=== PATIENT | male | born 1970 | race Caucasian/White ===

== ENCOUNTER 2016-09-23 11:12 | Inpatient (IN) | payer OTHER ==
[~2016-09-23] VITALS: Ht 170.2 cm; Wt 63.0 kg
[~2016-09-23 11:12] MED LIST: ACETAMINOPHEN-120 ML PO; AUGMENTIN875 MG PO; CELEBREX100 MG PO; MOTRIN600 MG PO; PERCOCET 5/31 TABLET PO
[2016-09-23 11:30] VITALS: BP 115/66
[2016-09-23 13:29] LABS: MCH 32.2 PG (29.0-34.0); MCHC 35.5 G/DL (30.0-36.0); MCV 90.7 FL (86-99); MEAN PLAT.VOLUME 9.8 uM^3 (9.0-12.4); PLATELET COUNT 269 K/uL (156-360); RBC DIS.WIDTH-CV 13.4 % (11.8-14.6); RBC DIS.WIDTH-SD 43.7 % (39-53); RED BLOOD COUNT 4.63 M/uL (4.00-5.50); WHITE BLOOD COUNT 15.4 K/uL (4.1-10.2)
[2016-09-23 13:45] LABS: INTER. NORMALIZED RATIO 1.1
[2016-09-23 13:53] LABS: ALKALINE PHOSPHATASE 53 IU/L (3-129); ANION GAP 13 MEQ/L (2-14); CHLORIDE 101 MEQ/L (99-109); GFR ESTIMATE (CALCULATED) > 59 mL/min/; GLUCOSE 100 mg/dL (70-99); POTASSIUM 4.4 MEQ/L (3.7-5.4); SAMPLE HEMOLYSIS CHECK 0; SAMPLE ICTERIC CHECK 0; SAMPLE LIPEMIA CHECK 0; SODIUM 136 MEQ/L (136-147); TOTAL BILIRUBIN 0.4 MG/DL (0.0-1.0); UREA NITROGEN (BUN) 26 mg/dL (9-23)
[2016-09-23 15:14] VITALS: BP 102/57
[2016-09-23] MEDS ORDERED: TYLENOL REGULA325 MG PO (15:20)
[2016-09-23] MEDS ORDERED: HEPARIN SO5000 UNITS SC (15:21)
[2016-09-23] MEDS ORDERED: NORMODYNE,TRAN300 MG PO (15:23)
[2016-09-23] MEDS ORDERED: KEPPRA750 MG PO (15:24)
[2016-09-23] MEDS ORDERED: NICODERM CQ1 EAC1 TD (15:26)
[2016-09-23] MEDS ORDERED: ZESTRIL40 MG PO (15:26)
[2016-09-23] MEDS ORDERED: OXYCODONE HCL10 MG PO (15:27)
[2016-09-23] MEDS ORDERED: SENOKOTXTRA17.2 MG PO (15:28)
[2016-09-23] MEDS ORDERED: HYTRIN10 MG PO (15:28)
[2016-09-23] MEDS ORDERED: DECADRON4 MG PO (15:29)
[2016-09-23 22:20] VITALS: BP 102/55
[2016-09-23 23:48] VITALS: BP 114/70
[2016-09-24 06:05] VITALS: BP 119/75
[2016-09-24 12:12] LABS: BASOPHIL COUNT 0.1 K/uL (0-0.1); EOSINOPHIL (%) 2.2 % (0-5); EOSINOPHIL COUNT 0.3 K/uL (0-0.3); HEMATOCRIT 43.4 % (38.0-50.0); IMMATURE GRANULOCYTE (%) 0.4 % (0.0-0.7); IMMATURE GRANULOCYTE COUNT 0.1 K/uL; LYMPHOCYTE COUNT 3.4 K/uL (1.0-2.8); MCH 31.8 PG (29.0-34.0); MCV 90.8 FL (86-99); MEAN PLAT.VOLUME 9.7 uM^3 (9.0-12.4); MONOCYTE (%) 8.9 % (3-12); MONOCYTE COUNT 1.2 K/uL (0-0.8); NEUTROPHIL COUNT 8.5 K/uL (1.8-6.4); PLATELET COUNT 285 K/uL (156-360); RBC DIS.WIDTH-CV 13.2 % (11.8-14.6); RBC DIS.WIDTH-SD 43.3 % (39-53); RED BLOOD COUNT 4.78 M/uL (4.00-5.50); WHITE BLOOD COUNT 13.6 K/uL (4.1-10.2)
[2016-09-24 13:23] VITALS: BP 100/62
[2016-09-24 16:20] VITALS: BP 102/51
[2016-09-24 17:54] VITALS: BP 103/55
[2016-09-25 05:10] VITALS: BP 106/56
[2016-09-25 08:43] LABS: ADD MIUA? NO; BILIRUBIN NEGATIVE; BLOOD NEGATIVE; COLOR YELLOW ((YELLOW)); GLUCOSE (STRIP) NEGATIVE; KETONES NEGATIVE; LEUKOCYTES NEGATIVE; NITRITE NEGATIVE; PH, URINE 5.5 (5-8); PROTEIN (STRIP) NEGATIVE; SPECIFIC GRAVITY 1.026 (1.000-1.030); UROBILINOGEN 0.2 MG/DL (0.2-1.0)
[2016-09-25 12:14] VITALS: BP 94/53
[2016-09-25 15:38] VITALS: BP 106/57
[2016-09-25 21:36] VITALS: BP 106/64
[2016-09-25 23:18] VITALS: BP 96/50
[2016-09-26 05:44] VITALS: BP 100/59
[2016-09-26 05:45] LABS: HEMATOCRIT 41.4 % (38.0-50.0); MCH 31.6 PG (29.0-34.0); MCHC 34.8 G/DL (30.0-36.0); MCV 90.8 FL (86-99); PLATELET COUNT 287 K/uL (156-360); RBC DIS.WIDTH-SD 42.7 % (39-53); RED BLOOD COUNT 4.56 M/uL (4.00-5.50); WHITE BLOOD COUNT 12.3 K/uL (4.1-10.2)
[2016-09-26 06:04] LABS: BASOPHIL COUNT 0.1 K/uL (0-0.1); EOSINOPHIL (%) 6.1 % (0-5); EOSINOPHIL COUNT 0.8 K/uL (0-0.3); IMMATURE GRANULOCYTE (%) 0.4 % (0.0-0.7); IMMATURE GRANULOCYTE COUNT 0.1 K/uL; LYMPHOCYTE COUNT 2.9 K/uL (1.0-2.8); MONOCYTE (%) 8.6 % (3-12); MONOCYTE COUNT 1.1 K/uL (0-0.8); NEUTROPHIL (%) 60.9 % (45-76); NEUTROPHIL COUNT 7.5 K/uL (1.8-6.4)
[2016-09-26 15:07] VITALS: BP 121/57
[2016-09-26 21:45] VITALS: BP 107/59
[2016-09-26 23:14] VITALS: BP 102/61
[2016-09-27 05:42] VITALS: BP 113/68
[2016-09-27 15:18] VITALS: BP 90/50
[2016-09-27 23:37] VITALS: BP 104/57
[2016-09-28 06:03] VITALS: BP 104/52
[2016-09-28 15:35] VITALS: BP 118/63
[2016-09-28 21:05] VITALS: BP 100/67
[2016-09-29 04:00] VITALS: BP 105/57
[2016-09-29 07:15] VITALS: BP 102/70
[2016-09-29 15:23] VITALS: BP 111/72
[2016-09-29 16:20] VITALS: BP 110/70
[2016-09-30] VITALS: BP 96/50
[2016-09-30 06:03] VITALS: BP 123/77
[2016-09-30 14:47] VITALS: BP 103/56
[2016-09-30 23:48] VITALS: BP 96/50
[2016-10-01 04:58] LABS: MCH 31.3 PG (29.0-34.0); MCHC 34.2 G/DL (30.0-36.0); MCV 91.3 FL (86-99); MEAN PLAT.VOLUME 9.6 uM^3 (9.0-12.4); PLATELET COUNT 271 K/uL (156-360); RBC DIS.WIDTH-CV 12.6 % (11.8-14.6); RBC DIS.WIDTH-SD 41.3 % (39-53); RED BLOOD COUNT 4.16 M/uL (4.00-5.50); WHITE BLOOD COUNT 11.1 K/uL (4.1-10.2)
[2016-10-01 04:59] LABS: BASOPHIL COUNT 0.1 K/uL (0-0.1); EOSINOPHIL (%) 7.2 % (0-5); EOSINOPHIL COUNT 0.8 K/uL (0-0.3); IMMATURE GRANULOCYTE (%) 0.2 % (0.0-0.7); IMMATURE GRANULOCYTE COUNT 0.2 K/uL; LYMPHOCYTE COUNT 2.7 K/uL (1.0-2.8); MONOCYTE (%) 6.1 % (3-12); MONOCYTE COUNT 0.7 K/uL (0-0.8); NEUTROPHIL (%) 61.7 % (45-76); NEUTROPHIL COUNT 6.8 K/uL (1.8-6.4)
[2016-10-01 05:16] LABS: CHLORIDE 105 mEq/L (99-109); POTASSIUM 4.6 mEq/L (3.7-5.4); SODIUM 137 mEq/L (136-147)
[2016-10-01 05:18] LABS: GLUCOSE 99 mg/dL (70-99)
[2016-10-01 05:19] LABS: ANION GAP 9 MEQ/L (2-14)
[2016-10-01 05:20] LABS: TOTAL BILIRUBIN 0.2 mg/dL (0.0-1.0)
[2016-10-01 05:22] LABS: ALKALINE PHOSPHATASE 76 IU/L (3-129); GFR ESTIMATE (CALCULATED) > 59 mL/min/
[2016-10-01 05:23] LABS: UREA NITROGEN (BUN) 20 mg/dL (9-23)
[2016-10-01 05:25] VITALS: BP 104/59
[2016-10-01 15:53] VITALS: BP 119/69
[2016-10-02 05:34] VITALS: BP 92/60
[2016-10-02 15:27] VITALS: BP 119/66
[2016-10-02 16:07] LABS: HEMATOCRIT 39.9 % (38.0-50.0); MCH 31.6 PG (29.0-34.0); MCHC 34.3 G/DL (30.0-36.0); MCV 92.1 FL (86-99); MEAN PLAT.VOLUME 9.7 uM^3 (9.0-12.4); PLATELET COUNT 245 K/uL (156-360); RBC DIS.WIDTH-CV 12.8 % (11.8-14.6); RBC DIS.WIDTH-SD 43.4 % (39-53); RED BLOOD COUNT 4.33 M/uL (4.00-5.50); WHITE BLOOD COUNT 8.8 K/uL (4.1-10.2)
[2016-10-02 16:11] LABS: EOSINOPHIL (%) 8.7 % (0-5); EOSINOPHIL COUNT 0.8 K/uL (0-0.3); IMMATURE GRANULOCYTE (%) 0.2 % (0.0-0.7); LYMPHOCYTE COUNT 2.5 K/uL (1.0-2.8); MONOCYTE (%) 5.9 % (3-12); MONOCYTE COUNT 0.5 K/uL (0-0.8); NEUTROPHIL (%) 56.6 % (45-76)
[2016-10-02] MEDS ORDERED: LEVETIRACETAM750 MG PO (16:47)
[2016-10-02] MEDS ORDERED: TYLENOL REGULA325 MG PO (16:47)
[2016-10-02] MEDS ORDERED: HYTRIN10 MG PO (16:47)
[2016-10-02] MEDS ORDERED: DOCUSATE SODIU100 MG PO (16:47)
[2016-10-02] MEDS ORDERED: SENNA PLUS TAB1 EACH PO (16:47)
[2016-10-02] MEDS ORDERED: NICODERM CQ1 EAC1 TD (16:47)
[2016-10-02] MEDS ORDERED: OXYCODONE HCL5 MG PO (16:47)
[2016-10-02] MEDS ORDERED: AVENTYL,PAMELOR25 MG PO (16:47)
[2016-10-02] MEDS ORDERED: GABAPENTIN300 MG PO (16:47)
[2016-10-02] MEDS ORDERED: ZESTRIL40 MG PO (16:47)
[2016-10-02] MEDS ORDERED: LABETALOL HCL200 MG PO (16:47)
[2016-10-03 06:05] VITALS: BP 136/84
[2016-10-03] MEDS ORDERED: LABETALOL HCL200 MG PO ×2 (11:29→11:40)
== END 2016-10-03 12:44 | DRG 57 ==
LOC: 3WEST 11:12
PROVIDERS: Psychiatry & Neurology Neurology
PROC: F07M0ZZ Range of Motion and Joint Mobility Treatment of Musculoskeletal System - Whole Body (ICD-10-PCS; principal; 2016-09-23)
DX: I69.251 Hemiplegia and hemiparesis following other nontraumatic intracranial hemorrhage affecting right dominant side (principal); I69.220 Aphasia following other nontraumatic intracranial hemorrhage; I69.218 Other symptoms and signs involving cognitive functions following other nontraumatic intracranial hemorrhage; I69.051 Hemiplegia and hemiparesis following nontraumatic subarachnoid hemorrhage affecting right dominant side; I69.020 Aphasia following nontraumatic subarachnoid hemorrhage; I69.018 Other symptoms and signs involving cognitive functions following nontraumatic subarachnoid hemorrhage; I10 Essential (primary) hypertension; D72.829 Elevated white blood cell count, unspecified; G89.29 Other chronic pain; M54.5 Low back pain; Z79.891 Long term (current) use of opiate analgesic; R51 Headache; R39.198 Other difficulties with micturition; D17.39 Benign lipomatous neoplasm of skin and subcutaneous tissue of other sites; F17.210 Nicotine dependence, cigarettes, uncomplicated
CPT/HCPCS: 76536; 80053; 81003; 85025; 85027; 85610; 92507 GN; 92523 GN; 92610 GN; 97110 GO; 97112 GO; 97530 GP; 97532 GN

== ENCOUNTER 2016-10-11 07:47 | Emergency (ER) | payer OTHER ==
[~2016-10-11] VITALS: Ht 170.2 cm; Wt 68.3 kg
[~2016-10-11 07:47] MED LIST changes: +AVENTYL,PAMELOR25 MG PO; +DECADRON4 MG PO; +DOCUSATE SODIU100 MG PO; +GABAPENTIN300 MG PO; +HEPARIN SO5000 UNITS SC; +HYTRIN10 MG PO; +KEPPRA750 MG PO; +LABETALOL HCL200 MG PO; +LEVETIRACETAM750 MG PO; +NICODERM CQ1 EAC1 TD; +NORMODYNE,TRAN300 MG PO; +OXYCODONE HCL10 MG PO; +OXYCODONE HCL5 MG PO; +SENNA PLUS TAB1 EACH PO; +SENOKOTXTRA17.2 MG PO; +TYLENOL REGULA325 MG PO; +ZESTRIL40 MG PO
[2016-10-11] MEDS ORDERED: DIAZEPAM5 MG PO (08:03)
[2016-10-11] MEDS ORDERED: PEN-VEE K,VEET500 MG PO (08:04)
[2016-10-11] MEDS ORDERED: LISINOPRIL40 MG PO (08:05)
[2016-10-11] MEDS ORDERED: TERAZOSIN HCL10 MG PO (08:05)
[2016-10-11 10:59] VITALS: BP 117/70
== END 2016-10-11 11:07 | disposition home or self-care (01) ==
LOC: EME 07:47
DX: R51 Headache (principal); I10 Essential (primary) hypertension; F17.200 Nicotine dependence, unspecified, uncomplicated
CPT/HCPCS: 70450; 99281; 99284; J2405